=== PATIENT | male | born 2000 | race Caucasian/White ===

== ENCOUNTER 2024-10-30 17:58 | Emergency (ER) | payer OTHER, SELFPAY ==
[2024-10-30 18:02] VITALS: BP 156/88
--- NOTE | 2024-10-30 18:59 | ED.GENMED ---
History of Present Illness
General
Chief Complaint: Headache
Source: patient
Exam Limitations: none
Time Seen by Provider: 10/30/24 18:24
Nursing documentation reviewed up to this point in time: agreed with
History of Present Illness
History of Present Illness:
24 y/o M with 4-5 days of sinus pressure forehead region with nasal congestion and then e ysterday started with subjective chills/fever
pt has tried OTC nasal spray which helped slightly
he has not had cough, sore throat, severe headache, ear pain but did have some ear pressure
pt has not had any otc decongestants
ahs had sinusitis in the past once before and thinks this is another episode
Past History
Past History
ED Past Medical History: None
ED Past Surgical History: None
Social History
Tobacco: Non-smoker
Alcohol: None
Drug: None
Personal: Single
Living: with family
Review of Systems
Review of Systems
Allergies reviewed?: Yes
All Other Systems: Not applicable
Phy Exam
Physical Exam
Physical Exam:
GENERAL: Alert , in no apparent distress
EYE: pupils equal and reactive
NECK: Supple
ENT: b/l TM s clear, pharynx erythematous but no tonsillar hypertrophy or exudates, nose inflamed and red/swollen
CARDIAC: Regular rate and rhythm, no edema
LUNGS: Clear breath sounds bilaterally, no acute respiratory distress, no wheezes/rales/rhonchi, occ cough
ABDOMEN: Soft, without focal tenderness, no r/g, no cvat, normal bowel sounds
NEUROLOGICAL: Alert and oriented, no focal neuro deficits
SKIN: Warm and dry, skin intact.
PSYCH: Normal and appropriate interaction.
Course
Orders/Labs/Results
Orders:
Orders
10/30/24 19:24
COVID-19 Antigen Urgent
Source: Nasal Swab
Influenza A+B Rapid Molecular Urgent
KATHI Source: Nasal Swab
Specimen Description:
Vital Signs
Initial and Last Documented VS:
Initial Vital Signs
Temp Pulse Resp BP Pulse Ox
36.7 C 103 20 156/88 98
10/30/24 18:02 10/30/24 18:02 10/30/24 18:02 10/30/24 18:02 10/30/24 18:02
Last Documented Vital Signs
Temp Pulse Resp BP Pulse Ox
37.2 C 78 18 124/88 99
10/30/24 20:11 10/30/24 20:11 10/30/24 20:11 10/30/24 20:11 10/30/24 20:11
MDM/Problems Addressed
Differential Diagnosis Includes:
influenza, ocvid, sinsuitis
MDM/Problems Addressed:
24-year-old healthy male with 4 to 5 days of upper respiratory symptoms including nasal congestion, headache, slight fever. He has tried some yaop-kyk-hlzfigd nasal spray. He denies sore throat a cough. On exam he was afebrile, mildly
hypertensive or originally. His exam otherwise showed swollen erythematous turbinates, mildly erythematous pharynx otherwise normal. His flu test was positive. He is outside the window of Tamiflu. Supportive care
*Critical Care Note
Total Time (30-74mins, 75-104mins- exclusive of procedures): Not Applicable
ED Attending Note
-
Portions of this chart may have been created with voice recognition software.� Occasional wrong word or��sound alike� substitutions may have occurred due to the inherent limitations of voice recognition software.
Discharge Plan
Departure
Patient Disposition: Home (Routine Discharge)
Date of Disposition: 10/30/24
Time of Disposition: 19:57
Patient with high blood pressure during this ER visit?: Yes
Condition: Fair
Covid-19: Not Applicable
Discharge Problem:
Upper respiratory infection, Influenza A
Instructions: Upper respiratory infection in adults - Discharge instructions, Flu in adults - ED discharge instructions
Prescriptions:
No Action
hydrocortisone 1 % cream
1 applic topical BID Qty: 28.35 0RF
Referrals:
UNKNOWN - PT DOES,NOT KNOW [Family Provider] -
Stand Alone Forms: Return to Work
Activity Restrictions/Additional Instructions:
You tested positive for the influenza A. You should take Tylenol and ibuprofen for your symptoms. You can use [id number]-jkp-vuszbix cold medications as well.
Return for any concerns
Interventions
Interventions:
*Risk Screen - Suicide Last Done: 10/30/24 20:12
*General Assessment Last Done: 10/30/24 18:02
*Neglect/Abuse Screening Last Done: 10/30/24 20:12
ED- Fall Risk Assessment Last Done: 10/30/24 20:12
*ED COVID-19 Vaccine History Last Done: 10/30/24 20:12
*Nursing Disposition Last Done: 10/30/24 20:12
ED- Neurological Assessment Last Done: 10/30/24 20:12
Discharge Date and Time
Discharge Date/Time: 10/30/24 20:13
Print Language: TELUGU
[2024-10-30 19:48] LABS: COVID-19 Antigen Negative (Negative)
[2024-10-30 20:11] VITALS: BP 124/88
== END 2024-10-30 20:13 | disposition home or self-care (01) ==
LOC: EMR 17:58
PROVIDERS: Physician Assistant; EMERGENCY PHYSICIAN Emergency Medicine
DX: J10.1 Influenza due to other identified influenza virus with other respiratory manifestations (principal)
CPT/HCPCS: 99283; 87502; 87811